=== PATIENT | male | born 1975 | race Caucasian/White ===

== ENCOUNTER 2020-08-26 07:50 | Day surgery (SDC) | payer BC ==
[~2020-08-26] VITALS: Ht 182.9 cm; Wt 90.9 kg
[~2020-08-26 07:50] MED LIST: AMOX TR-K CLV1 EAC1 PO; COSENTYX (150 MG/1 M; DOXYCYCLINE HYC20 MG PO; HYDROCODON-ACE1 EA10 PO; INDOMETHACIN75 MG PO; SUDAFED 12 HOU120 MG PO
--- NOTE | 2020-08-26 11:59 | NUR ---
08/26/20 1159 Ramonita Guzman 1153 PT ARRIVED TO PACU ON 6L VIA AND RESP EVEN AND UNLABORED. 1157 PT WOKE AND IS REORIENTED TO PACU, PT EASILY FALLS BACK TO SLEEP. VSS.
--- NOTE | 2020-08-27 07:58 | OR ---
[facility] [address], [place] [address] Signed DATE OF OPERATION: 08/26/2020 SURGEON: Popeye Plascencia MD PREOPERATIVE DIAGNOSES: 1. Subcutaneous mass, posterior right shoulder (11 cm). 2. Subcutaneous mass x2, right lateral rib cage (2 cm). 3. A 4 mm skin lesion, right posterior axilla. PROCEDURES: 1. Excision of three subcutaneous masses. 2. Excision of skin lesion, right posterior axilla. ESTIMATED BLOOD LOSS: None. INDICATIONS: Albino is a 44-year-old gentleman, who came to see me with three subcutaneous masses. The one over his right posterior shoulder is quite large, it is at least 11 cm in diameter. He said it has been growing for at least five or six years. At this point, the skin over that shoulder so tight, it is causing him pain. He works as a service technician copier at a [employer] and it has been causing him quite a bit of trouble. He has to lie on the ground, regenerate machines and so forth. He also noticed two smaller subcutaneous lumps on the right lateral rib cage as well. They are probably a couple of centimeters in diameter. We were able to review this in the office. I explained to him the nature of the incisions required to remove those lesions. There is risk that surgery including, but not limited to bleeding, infection, scarring, change in contour of the skin as well as possible recurrent subcutaneous masses in the same or other locations. He had expressed understanding and wished to proceed. In addition, I had met with Albino and his in our preop area and we noticed a 4 mm pedunculated skin lesion in the crease of his right posterior axilla. He said it catches on a certain. He asked if I could simply excise that at the time of his surgery, that is certainly reasonable. He had expressed understanding and wished to proceed. DESCRIPTION OF PROCEDURE: I have met with Albino and his in the preop area. We marked all four lesions appropriately. After this, he was taken into the operating room and placed in the left lateral decubitus position with our LMA general anesthetic. He was given preoperative antibiotics along with subcutaneous heparin. SCDs were utilized. He was prepped and draped in the usual sterile fashion. The 4 mm skin lesion was easily excised with our Electronically Signed By: POPEYE PLASCENCIA MD 08/27/20 0758 PATIENT NAME: ALBINO PAUL OPERATIVE REPORT DATE OF : 73 REPORT #: [id number] PHYSICIAN: POPEYE PLASCENCIA MD PCP: PONCE ARIZA MD REPORT IS CONFIDENTIAL AND NOT TO BE RELEASED WITHOUT AUTHORIZATION [facility] [address], [place] [address] Signed 15 blade knife and the skin closed with an interrupted [id number] 5-0 fast absorbing plain gut suture. We then used oblique incision over the posterior right shoulder to remove that lesion. We used cautery to go around, course it traveled from the skin all the way down the muscle. The entire lesion was removed, it was almost perfectly circular, it measured out 11 cm. We took photos for documentation. We injected local anesthetic into the chest wall in his skin and then irrigated the wound until clear. We closed the dermis with interrupted 3-0 subcuticular Monocryl sutures. The skin edges were reapproximated with a running 5-0 fast absorbing plain gut suture. After this, we moved to the two lesions on his right lateral rib cage, one more in the flank, one more lateral. Again, the incision was made over each one, each one was removed with the help of the cautery. They appeared to be lipomas, probably 2 cm or so in diameter each. Local anesthetic was injected each into the wounds and then the wounds were irrigated and suctioned out until clear. The skin and dermis were reapproximated with interrupted 3-0 subcuticular Monocryl sutures. The skin edges were reapproximated with running 5-0 fast absorbing plain gut sutures. Dry gauze and tape were applied all incisions. Albino was rotated into the supine position on his hospital bed, weaned from his anesthesia, extubated in the OR, and taken to the recovery room in stable condition. Popeye Plascencia MD ALB/MODL /[id number] cc: MD Josephine Sandhu PA Copies: POPEYE PLASCENCIA MD, LINDA PA ~ Electronically Signed By: POPEYE PLASCENCIA MD 08/27/20 0758 PATIENT NAME: ALBINO PAUL OPERATIVE REPORT DATE OF : 73 REPORT #: [id number] PHYSICIAN: POPEYE PLASCENCIA MD PCP: PONCE ARIZA MD REPORT IS CONFIDENTIAL AND NOT TO BE RELEASED WITHOUT AUTHORIZATION
--- NOTE | 2020-08-28 15:38 | PATH ---
[facility] [address] [facility] [place], [place] [address] Signed SPECIMEN(S): A RIGHT AXILLA, SHOULDER RIBCAGE SPECIMEN(S): B RIGHT POSTERIOR SHOULDER SPECIMEN(S): C RIGHT FLANK SPECIMEN(S): D RIGHT LATERAL CHEST WALL SPECIMEN SOURCE: A. RIGHT AXILLA, SHOULDER RIBCAGE B. RIGHT POSTERIOR SHOULDER C. RIGHT FLANK D. RIGHT LATERAL CHEST WALL CLINICAL HISTORY: SubQ masses. Excisions. FINAL PATHOLOGIC DIAGNOSIS: A. 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 B. Soft tissue, right posterior shoulder subcutaneous mass, excision: - Lipoma. C. Soft tissue, right flank subcutaneous mass, excision: - Lipoma. D. Soft tissue, right lateral chest wall subcutaneous mass, excision: - Lipoma. COMMENT: As part of [employer] Quality Improvement Program, part A of this case was reviewed by another member of our pathology staff. NAL:NRT:cml:C2NR MICROSCOPIC EXAMINATION: Histologic sections of all submitted blocks are examined by light microscopy. These findings, together with the gross examination, support the pathologic diagnosis. GROSS DESCRIPTION: Four specimens are received in four containers, labeled "Albino Hinds." A. The specimen, labeled "Albino Hinds A," is and designated on the requisition "skin lesion right axillary," received in formalin and consists of 0.7 x 0.6 x 0.6 cm polypoid portion of skin. The skin surface is kinsey-brown and wrinkled. The specimen is inked, bisected, and PATIENT NAME: ALBINO HINDS PATHOLOGY DATE OF : 73 REPORT #: [id number] PHYSICIAN: ADRIA LIU PCP: PONCE ARIZA MD REPORT IS CONFIDENTIAL AND NOT TO BE RELEASED WITHOUT AUTHORIZATION [facility] [address], [place] [address] Signed entirely submitted in cassette (A1). B. The specimen, labeled "Albino Hinds, B," is and designated on the requisition "right posterior shoulder subcutaneous mass," received in formalin and consists of 216 g unoriented portion of yellow-plunkett multilobulated adipose tissue that is 11.6 x 9.4 x 4.5 cm. The specimen is encased in a pink membranous tissue. The specimen is inked blue, serially sectioned perpendicular to the long axis revealing a yellow homogeneous cut surface. Technical Agronomist sections are submitted in cassettes (B1-B3). C. The specimen, labeled "Albino Hinds, C," is and designated on the requisition "subcutaneous mass right flank, received in formalin and consists of 5 g unoriented portion of yellow-plunkett multilobulated adipose tissue that is 3.5 x 2.4 x 1.6 cm. The specimen is encased in a transparent pink membranous tissue. The tissue is inked entirely sectioned revealing a pale yellow homogeneous cut surface. Technical Agronomist sections are submitted in cassette (C1). D. The specimen, labeled "Albino Hinds D," is and designated on the requisition "subcutaneous mass right lateral chest wall," received in formalin and consists of 4g unoriented portion of yellow-plunkett adipose tissue that is 4.2 x 2.1 x 1.5 cm. The specimen is partially surfaced by a transparent delicate membranous tissue. The tissue is inked and serially sectioned revealing a yellow homogeneous cut surface. Technical Agronomist sections are submitted in cassette (D1). FB (under the direct supervision of a pathologist) The Gross Description was prepared using a voice recognition system. The report was reviewed for accuracy; however, sound-alike word errors, addition and/or deletions may occur. If there is any question about this report, please contact Client Services. PERFORMING LABORATORY: The technical component was performed by [facility] [address] (Erp Developer: Ly Kraus MD; CLIA# [id number]). [facility] [place] [address] [address] (CLIA# [id number]). Diagnostician: Dorothy Burnham MD Pathologist Electronically Signed 08/28/2020 PATIENT NAME: ALBINO HINDS PATHOLOGY DATE OF : 73 REPORT #: [id number] PHYSICIAN: ADRIA PATHOLOGY PCP: PONCE ARIZA MD REPORT IS CONFIDENTIAL AND NOT TO BE RELEASED WITHOUT AUTHORIZATION [facility] [address], [place] [address] Signed Copies: ~ PATIENT NAME: ALBINO HINDS PATHOLOGY DATE OF : 73 REPORT #: [id number] PHYSICIAN: ADRIA PATHOLOGY PCP: PONCE ARIZA MD REPORT IS CONFIDENTIAL AND NOT TO BE RELEASED WITHOUT AUTHORIZATION
== END 2020-08-26 13:25 | disposition home or self-care (01) ==
LOC: OPS 07:50 → DS 07:50
PROVIDERS: ATTEND Colon & Rectal Surgery
PROC: 0JB70ZZ Excision of Back Subcutaneous Tissue and Fascia, Open Approach (ICD-10-PCS; 2020-08-26)
PROC: 0JB60ZZ Excision of Chest Subcutaneous Tissue and Fascia, Open Approach (ICD-10-PCS; 2020-08-26)
PROC: 0JB80ZZ Excision of Abdomen Subcutaneous Tissue and Fascia, Open Approach (ICD-10-PCS; 2020-08-26)
PROC: 0JBD0ZZ Excision of Right Upper Arm Subcutaneous Tissue and Fascia, Open Approach (ICD-10-PCS; principal; 2020-08-26 09:45)
DX: D17.1 Benign lipomatous neoplasm of skin and subcutaneous tissue of trunk (principal); D22.5 Melanocytic nevi of trunk; F32.9 Major depressive disorder, single episode, unspecified; F90.9 Attention-deficit hyperactivity disorder, unspecified type; Z79.899 Other long term (current) drug therapy; Z88.8 Allergy status to other drugs, medicaments and biological substances
CPT/HCPCS: J0690; J1644; J2001; J2405; J2704; J3010; J7121

== ENCOUNTER 2021-06-26 15:03 | Emergency (ER) | payer BC ==
[~2021-06-26] VITALS: Ht 182.9 cm; Wt 87.5 kg
[2021-06-26] MEDS ORDERED: HYDROCODON-ACE1 EA10 PO (16:50)
== END 2021-06-26 17:10 | disposition home or self-care (01) ==
LOC: ED 15:03
DX: S43.034A Inferior dislocation of right humerus, initial encounter (principal); Y04.8XXA Assault by other bodily force, initial encounter; Z88.8 Allergy status to other drugs, medicaments and biological substances; Z79.899 Other long term (current) drug therapy
CPT/HCPCS: 23650; 73030; 99152; 99283-25; J1170; J1885; J2704

== ENCOUNTER 2021-11-03 10:35 | Emergency (ER) | payer BC ==
[~2021-11-03] VITALS: Ht 182.9 cm; Wt 84.8 kg
[~2021-11-03 10:35] MED LIST changes: +CELECOXIB200 MG PO; +HYDROCODON-ACE1 EA11 PO; +SENTRY TABLET1 EACH PO
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
[2021-11-03] MEDS ORDERED: ONDANSETRON ODT4 MG PO (12:04)
[2021-11-03] MEDS ORDERED: HYDROCODON-ACE1 EA10 PO (12:04)
== END 2021-11-03 12:30 | disposition home or self-care (01) ==
LOC: ED 10:35
DX: N13.2 Hydronephrosis with renal and ureteral calculous obstruction (principal); Z79.899 Other long term (current) drug therapy
CPT/HCPCS: 74176; 81001; 96374; 99284-25; J1885

== ENCOUNTER 2022-01-21 13:55 | Emergency (ER) | payer BC ==
[~2022-01-21] VITALS: Ht 182.9 cm; Wt 84.8 kg
[~2022-01-21 13:55] MED LIST changes: +ONDANSETRON ODT4 MG PO
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
[2022-01-21] MEDS ORDERED: CONSTULOSE10 GM/15 M PO (16:46)
== END 2022-01-21 19:01 | disposition home or self-care (01) ==
LOC: ED 13:55
DX: R10.12 Left upper quadrant pain (principal); Z79.899 Other long term (current) drug therapy
CPT/HCPCS: 36415; 74177; 80053; 81001; 83690; 85025; 96375; 99284-25; J1885; J2270; J2405; J7030